=== PATIENT | female | born 1950 | race Caucasian/White ===

== ENCOUNTER 2017-08-21 12:05 | Emergency (ER) | payer OTHER ==
[~2017-08-21] VITALS: Ht 162.6 cm; Wt 76.8 kg
[2017-08-21 13:25] VITALS: BP 136/88
== END 2017-08-21 13:25 | disposition home or self-care (01) ==
LOC: ED 12:05
DX: R42 Dizziness and giddiness (principal); I10 Essential (primary) hypertension; K29.70 Gastritis, unspecified, without bleeding
CPT/HCPCS: J8597; Q0162

== ENCOUNTER 2018-11-18 15:47 | Inpatient (IN) | payer OTHER ==
[~2018-11-18] VITALS: Ht 160 cm; Wt 80.7 kg
--- NOTE | 2018-11-18 16:36 | NUR ---
PT PRESENTS TO ED WITH C/O OF RIGHT SIDED LOWER ABDOMINAL PAIN STARTING ACUTELY TODAY. PT STS PAIN IS SHARP AND AT TIMES RADIATES TO LLQ AND BACKSIDE. PER PT DAUGHTER PT HAD UTI AND WAS GIVEN MEDICATION FOR IT, BUT HAS NOT GOTTEN BETTER AFTER FINISHING MEDICATION. PT STS SHE FEELS NAUSEOUS BUT DENIES VOMTING. PT STS THE MED SHE TOOK FOR UTI MADE HER CONSTIPATED BUT HAD A BM TODAY. PT AAOX4, RESP E/U, ON FULL CM, NO ACUTE DISTRESS NOTED AT THIS TIME. DAUGHTER AT BEDSIDE. CALL LIGHT WITH IN REACH.
[2018-11-18 17:21] LABS: BASOPHIL % 0.5 % (0-2); PLATELET COUNT 242 x10^3mcL (130-400); RED CELL DISTRIBUTION WIDTH 12.8 % (11.5-14.5)
--- NOTE | 2018-11-18 17:24 | NUR ---
PT FAMILY NOTIFIED CT WAS DOWN AND IT MAY TAKE UP TO AN HOUR TO BE ON. PT FAMILY VERBALIZED THEY WILL WAIT FOR CT.
[2018-11-18 17:34] LABS: UA SPECIFIC GRAVITY <=1.005 (1.005-1.035); microscopic required? YES; urine erythrocyte 1+ (NEGATIVE)
[2018-11-18 17:37] LABS: CALCIUM 9.6 mg/dL (8.5-10.1); CARBON DIOXIDE 23.2 mmol/L (21-32); CHLORIDE SERUM 105 mmol/L (98-107); CREATININE SERUM 0.9 mg/dL (0.6-1.0); GFR1 > 60 mL/min; GLUCOSE SERUM 102 mg/dL (74-106); POTASSIUM SERUM 4.1 mmol/L (3.5-5.1); SODIUM SERUM 140 mmol/L (136-145)
[2018-11-18 17:43] LABS: ALBUMIN 4.1 g/dL (3.4-5.0); ALKALINE PHOSPHATASE 95 U/L (46-116); ALT/SGPT 25 U/L (14-59); AST/SGOT 10 U/L (15-37); BILIRUBIN TOTAL 0.29 mg/dL (0.20-1.00); LIPASE 134 IU/L (73-393); TOTAL PROTEIN, SERUM 7.6 g/dL (6.4-8.2)
--- NOTE | 2018-11-18 18:39 | NUR ---
PT OFF FLOOR TAKEN FOR CT SCAN
--- NOTE | 2018-11-18 18:55 | NUR ---
PT SITTING UP ON GURNEY IN POSITION OF COMFORT, AAOX4, RESP E/U, NO ACUTE DISTRESS NOTED AT THIS TIME.
--- NOTE | 2018-11-18 19:34 | NUR ---
PT AAOX4, SITTING UP IN BED, NO S/S OF DISTRESS NOTED. FAMLIY IS AT BEDSIDE. PT REPORTS PAIN HAS DECREASED TO A 2/10 AND IS TOLERABLE.
--- NOTE | 2018-11-18 20:24 | NUR ---
DR HERNÁNDEZ AT BEDSIDE DISCUSSING PLAN OF CARE WITH PT AND PT FAMILY.
[2018-11-18] MEDS ORDERED: SIMVASTATIN10 M1 PO (20:31)
[2018-11-18] MEDS ORDERED: BENAZEPRIL HYDR40 M1 PO (20:31)
--- NOTE | 2018-11-18 21:13 | NUR ---
REPORT GIVEN TO RAMAKRISHNA RUVALCABA TO ASSUME CARE OF PT.
--- NOTE | 2018-11-18 21:30 | NUR ---
PT SEEN SITTING ON THE EDGE OF THE BED, CAME IN DUE TO ABDOMINAL PAIN X1 DAY. AAOX4. DENIES HEADACHE/DIZZINESS. ABLE TO FOLLOW COMMANDS. NO SOB NOTED, LUNG SOUNDS CTA. DENIES CHEST PAIN/PRESSURE. DENIES ABDOMINAL PAIN/NAUSEA/VOMITING. ABDOMEN IS SOFT. BOWEL SOUNDS ACTIVE. LAST BM TODAY AND WAS FORMED. VOIDS. IV SITE ON THE RAC IS PATENT AND INTACT. DAUGHTER AT BEDSIDE. SIDE RAILS UPX2. CALL LIGHT ON REACH. ENDORSED TO PRIMARY NURSE JORDON FOR CONTINUITY OF CARE
[2018-11-18 21:36] VITALS: BP 141/73
--- NOTE | 2018-11-18 21:40 | NUR ---
DR. ROWE IS PAGED TO MADE AWARE THAT PT DOES NOT HAVE ADMIT ORDERS AT THIS TIME
[2018-11-18 21:41] VITALS: Ht 160 cm; Wt 80.7 kg
--- NOTE | 2018-11-18 22:02 | NUR ---
RECIEVED PT FROM PENELOPE RN IN NO ACUTE DISTRESS. FAMILY MEMBER AT BEDSIDE. PLACED ON TELE #9. ORIENTED TO ROOM. BED IN LOWEST POSITION, 2 SIDE RAILS UP, CALL LIGHT IN REACH. INSTRUCTED TO CALL FOR ASSISTANCE.
[2018-11-18 22:10] LABS: CHOLESTEROL/HDL RATIO 3.9; MAGNESIUM 2.5 mg/dL (1.8-2.4); PHOSPHOROUS 3.7 mg/dL (2.5-4.9)
--- NOTE | 2018-11-19 02:34 | NUR ---
RESTING IN BED WITH EYES CLOSED. BREATHING E/U ON RA. NO ACUTE DISTRESS NOTED. WILL CONTINUE TO MONITOR.
[2018-11-19 05:24] VITALS: BP 106/56
--- NOTE | 2018-11-19 06:04 | NUR ---
NO C/O ABD PAIN OVERNIGHT. NO ACUTE DISTRESS NOTED. NO ACUTE CHANGES. WILL ENDORSE TO ONCOMING RN.
--- NOTE | 2018-11-19 07:50 | NUR ---
RECEIVED PATIENT FROM RAMAKRISHNA RUVALCABA, PATIENT SEATED IN BED. NO COMPLAINTS OF ABDOMINAL PAIN AT THIS TIME. NO ABDOMINAL DISTENTION, NO PAIN ON PALPATION. WILL CONTINUE TO MONITOR. CALL LIGHT IN REACH.
[2018-11-19 08:05] LABS: BASOPHIL % 0.7 % (0-2); PLATELET COUNT 217 x10^3mcL (130-400); RED CELL DISTRIBUTION WIDTH 12.6 % (11.5-14.5)
[2018-11-19 09:04] VITALS: BP 113/65
[2018-11-19 10:35] VITALS: BP 136/74
[2018-11-19 10:46] VITALS: BP 136/74
[2018-11-19] MEDS ORDERED: COLACE100 MG PO (11:12)
--- NOTE | 2018-11-19 11:28 | NUR ---
PATIENT SEATED AT BEDSIDE, NO COMPLAINTS OF PAIN. FAMILY AT BEDSIDE. DISCHARGE PACKET & PRESCRIPTION EXPLAINED TO PATIENT & FAMILY. ALL QUESTIONS ADDRESSED. DISCHARGE PACKET GIVEN TO FAMILY. IV CATHETER REMOVED & INTACT. PATIENT W BELONGINGS ESCORTED DOWNSTAIRS MARIPOSA MOREL
== END 2018-11-19 11:39 | disposition home or self-care (01) | DRG 391 ==
LOC: ED 15:47 → MU 20:53 → DU 21:50 → MU 22:54
PROVIDERS: Emergency Medicine; ADMIT General Practice
DX: R10.31 Right lower quadrant pain (principal); N17.0 Acute kidney failure with tubular necrosis; R80.9 Proteinuria, unspecified; I10 Essential (primary) hypertension; E78.5 Hyperlipidemia, unspecified
CPT/HCPCS: 83880; J1885; J2405; Q0092

== ENCOUNTER 2018-11-23 18:08 | Inpatient (IN) | payer OTHER ==
[~2018-11-23] VITALS: Ht 160 cm; Wt 83.5 kg
[~2018-11-23 18:08] MED LIST: BENAZEPRIL HYDR40 M1 PO; COLACE100 MG PO; SIMVASTATIN10 M1 PO
--- NOTE | 2018-11-23 18:36 | NUR ---
ED PHYSICIAN AT BEDSIDE FOR PATIENT EVALUATION. MEDICAL SCREENING EXAMINATION COMPLETED BY ED PHYSICIAN DR. RODRIGUES.
--- NOTE | 2018-11-23 19:09 | NUR ---
REPORT HAND-OFF TO RAMAKRISHNA ACEVES TO ASSUME CARE.
[2018-11-23 19:23] LABS: BASOPHIL % 0.6 % (0-2); PLATELET COUNT 218 x10^3mcL (130-400); RED CELL DISTRIBUTION WIDTH 13.8 % (11.5-14.5)
[2018-11-23 19:30] LABS: CALCIUM 8.9 mg/dL (8.5-10.1); CARBON DIOXIDE 26.1 mmol/L (21-32); POTASSIUM SERUM 3.9 mmol/L (3.5-5.1)
[2018-11-23 19:35] LABS: ALBUMIN 3.4 g/dL (3.4-5.0); BILIRUBIN TOTAL 0.33 mg/dL (0.20-1.00); TOTAL PROTEIN, SERUM 7.3 g/dL (6.4-8.2)
--- NOTE | 2018-11-23 19:45 | NUR ---
REPORT CALLED TO EASTON DURBIN TO ASSUME PT CARE.
--- NOTE | 2018-11-23 19:52 | NUR ---
PT TRANSFERRED TO RM 222B BY WHEELCHAIR BY [facility] EMT. PT ACCEPTED BY EASTON DURBIN TO ASSUME PT CARE. PT AOX4, RESP EVEN AND UNLABORED, NO ACUTE DISTRESS NOTED.
--- NOTE | 2018-11-23 20:00 | NUR ---
PT SEEN LYING IN BED, AAOX4. PER PT'S DAUGHTER, THEY GOT A CALL ABOUT PT'S URINE CULTURE RESULT. AAOX4. DENIES HEADACHE/DIZZINESS. NO SOB NOTED. DENIES CHEST PAIN/PRESSURE. DENEIS ABDOMINAL DISCOMFORT. BOWEL SOUNDS ACTIVE. PT STATED THAT SHE HAS MILD BURNING SENSATION ON URINATION. IV SITE ON THE LEFT HAND GAUGE 22 IS PATENT AND INTACT. SIDE RAILS UPX2. CALL LIGHT ON REACH. ENDORSED TO PRIMARY NURSE EASTON FOR CONTINUITY OF CARE
[2018-11-23 20:05] VITALS: BP 125/62
[2018-11-23 20:10] VITALS: Ht 160 cm; Wt 83.5 kg
--- NOTE | 2018-11-24 00:14 | NUR ---
PT RESTING, BREATHING EVEN AND UNLABORED WITH NO SOB NOTED. IV PATENT, INFUSING WELL. SAFETY PRECAUTIONS IN PLACE. WILL MONITOR.
--- NOTE | 2018-11-24 01:39 | NUR ---
PT REPORTED HAVING A HEADACHE, MEDICATED PER EMAR. WILL MONITOR.
[2018-11-24 02:26] LABS: microscopic required? YES; urine erythrocyte 1+ (NEGATIVE)
--- NOTE | 2018-11-24 03:32 | NUR ---
ROUNDS MADE. PT RESTING, BREATHING EVEN AND UNLABORED WITH NO SIGNS OF DISTRESS NOTED. IV PATENT, INFUSING WELL. SAFETY PRECAUTIONS IN PLACE. WILL MONITOR.
--- NOTE | 2018-11-24 05:27 | NUR ---
PT SLEPT MOST OF THE NIGHT WITH NO SIGNS OF DISTRESS. BREATHING EVEN AND UNLABORED WITH NO SOB NOTED. IV PATENT, INFUSING WELL. NO SIGNS OF INFILTRATION NOTED. SAFETY PRECAUTIONS IN PLACE. WILL CONTINUE TO MONITOR AND ENDORSE CARE TO DAY SHIFT RN.
[2018-11-24 06:48] VITALS: BP 106/64
--- NOTE | 2018-11-24 07:35 | NUR ---
PT BREATHING EVEN AND UNLABORED WITH NO SIGNS OF DISTRESS. ENDORSED CARE TO DAY SHIFT RN, ALL QUESTIONS ADDRESSED.
--- NOTE | 2018-11-24 07:42 | NUR ---
RECIEVED PT FROM NIGHT NURSE. PT IS LAYING DOWN IN BED WITH HOB UP. PT LOOKS TO BE IN NO ACUTE DISTRESS AND DENIES ANY PAIN AT THIS TIME. RESPIRATIONS EVEN AND UNLABORED ON ROOM AIR. IV SITE PATENT WITH NO SIGNS OF ERYTHEMA OR SWELLING WITH IV FLUIDS INFUSING. BED IN LOWEST POSITION. CALL LIGHT WITHIN REACH. WILL CONTINUE TO MONITOR.
[2018-11-24 07:43] LABS: BASOPHIL % 0.7 % (0-2); PLATELET COUNT 215 x10^3mcL (130-400); RED CELL DISTRIBUTION WIDTH 13.8 % (11.5-14.5)
[2018-11-24 08:04] LABS: CALCIUM 8.8 mg/dL (8.5-10.1); CARBON DIOXIDE 23.8 mmol/L (21-32); CHLORIDE SERUM 108 mmol/L (98-107); CREATININE SERUM 0.8 mg/dL (0.6-1.0); GFR1 > 60 mL/min; GLUCOSE SERUM 97 mg/dL (74-106); MAGNESIUM 2.3 mg/dL (1.8-2.4); PHOSPHOROUS 3.7 mg/dL (2.5-4.9); POTASSIUM SERUM 4.2 mmol/L (3.5-5.1); SODIUM SERUM 143 mmol/L (136-145)
[2018-11-24 09:41] VITALS: BP 119/63
--- NOTE | 2018-11-24 11:00 | NUR ---
RECEIVED ORDER FOR PICC LINE PLACEMENT. CALLED TO PICC RN PLUS TO ARRANGE PICC LINE PLACEMENT, SERA FERNANDO(RN PICC)PATTERNMAKER METAL WILL BE NOTIFIED OF THE ORDER AND WILL CALL BACK OF Lazarus SIGALA RN ASSIGNED TO THIS PT MADE AWARE OF ABOVE.
--- NOTE | 2018-11-24 15:00 | NUR ---
PICC LINE NURSE AT BEDSIDE.
[2018-11-24 17:05] VITALS: BP 118/66
--- NOTE | 2018-11-24 18:48 | NUR ---
PT IS LAYING DOWN IN BED. RESPRIATIONS EVEN AND UNLABORED ON ROOM AIR. PT LOOKS TO BE IN NO ACUTE DISTRESS AT THIS TIME AND DENIES ANY PAIN. IV SITE PATENT WITH NO SIGNS OF ERYTHEMA OR SWELLING WITH IV FLUIDS INFUSING. BED IN LOWEST POSITION, CALL LIGHT WITHIN REACH. WILL ENDORSE TO ONCOMING SHIFT.
--- NOTE | 2018-11-24 19:43 | NUR ---
RECEIVED PATIENT FROM AM RN. PATIENT QUEITLY RESTING IN BED AT THIS TIME. FAMILY BY BEDSIDE. IVF INFUSING TO LEFT HAND AT 100ML/HR NS, NO PAIN OR INFILTRATION NOTED. REMAINE ON CONTACT PRECAUTIONS FOR ESBL OF THE URINE. CALL LIGHT WITHIN REACH.
[2018-11-24 20:38] VITALS: BP 122/66
--- NOTE | 2018-11-24 22:34 | NUR ---
PATIENT QUIETLY SLEEPING AT THIS TIME. BREATHING IS EVEN AND UNLABORED. NO S/SX OF DISTRESS NOTED. CALL LIGHT WITHIN REACH. IVF INFUSING TO LEFT HAND AT 100ML/HR NS. ALL NEEDS MET AT THIS TIME.
--- NOTE | 2018-11-25 05:25 | NUR ---
PATIENT QUIETLY RESTING IN BED. IVF INFUSING TO LEFT HAND AT 100ML/HR NS. NO INFILTRATION NOTED. REMAINED ON CONTACT PRECAUTIONS FOR ESBL OF THE URINE. PATIENT DENIES ANY SOB OR PAIN. CALL LIGHT WITHIN REACH AND CONTINUED ANTIBIOTICS MERREM. RIGHT UPPER ARM PICC LINE IN PLACE.
[2018-11-25 06:04] VITALS: BP 139/75
[2018-11-25 06:42] LABS: BASOPHIL % 0.7 % (0-2); PLATELET COUNT 222 x10^3mcL (130-400); RED CELL DISTRIBUTION WIDTH 13.6 % (11.5-14.5)
[2018-11-25 07:02] LABS: CALCIUM 9.2 mg/dL (8.5-10.1); CARBON DIOXIDE 23.5 mmol/L (21-32); CHLORIDE SERUM 108 mmol/L (98-107); CREATININE SERUM 0.8 mg/dL (0.6-1.0); GFR1 > 60 mL/min; GLUCOSE SERUM 95 mg/dL (74-106); MAGNESIUM 2.1 mg/dL (1.8-2.4); PHOSPHOROUS 3.2 mg/dL (2.5-4.9); POTASSIUM SERUM 4.2 mmol/L (3.5-5.1); SODIUM SERUM 142 mmol/L (136-145)
--- NOTE | 2018-11-25 07:18 | NUR ---
ENDORSED CARE TO AM RAMAKRISHNA VARGAS FOR CONTINUITY OF CARE. NO S/SX OF DISTRESS NOTED.
--- NOTE | 2018-11-25 08:00 | NUR ---
PATIENT RECEIVED ALERT AND ORIENTED TIMES FOUR. PATIENT IN ISOLATION FOR THE URINE AND HAS BEEN ON MERRIN IVPB AND TOELRATE SO FAR WELL. PATIENT AHS NOTED WITH VITALS AT 97.9, 68, 18, 139/75, 96%. PATIENT AND NOTED LABS OF GLUCOSE AT 157, AND AST AT 11, AND CHRIS RICHARD NOTE DBLOOD , WBCS AND MANY BATERIA IN THE UINRE. CHRIS RICHARD BEEN ABLE TO MAKE NEEDS KNOWN BUT IS MOST SPAINISH SPEAING AT THIS TIME.
[2018-11-25 09:38] VITALS: BP 141/75
--- NOTE | 2018-11-25 10:11 | NUR ---
PATIENT DENIES PAIN AT THIS TIME. IV INTACT AND PATIENT HAS TOLERATED OOB WELL. PATIENT HAS BEEN IN ISOLATION FOR THE ESBL AND APRIL RICHARD WTIH BLOOD WELL MANY BACTERIA AND WBCS WELL IN THE URINE. CHRIS IRCHARD HISTORY OF HTN, APPENDECTOMY, VGINAL RECONSTRUCTION AND DYSLIPIDEMIA. SHE HAS SEEN IN THE ER AND REQUESTED TO COME BACK WHEN THE UTI INFEXTION WAS DIAGNOSED. WILL ONTNUE ON THE PRESENT PLAN OF CARE.
--- NOTE | 2018-11-25 12:45 | NUR ---
PATIENT IS AWAITING BARREL LATHE OPERATOR TO ARRANGE THE ANTIBIOTIC THERAPY SHE WILL NEED. FAMILY AWARE.
[2018-11-25] MEDS ORDERED: MEROPENEM1 GM IV (14:20)
--- NOTE | 2018-11-25 17:00 | NUR ---
PATIENT FOR DISCHARGE POST INFUSION OF THE NEXT ANTIBIOTIC MERRIN. THE DCOTOR TO COME AND TALK WITH THE PATIENT ABOUT THE EVENTS AND THE PLAN OF DISCHARGE. IF AGREEABE THE PATIENT WILL RECEIVE HER LAST DOSING AT TEN PM PRIOR TO DISCHARGE. AWAITING THE DECISION.
--- NOTE | 2018-11-25 17:28 | NUR ---
SPOKE KINGSLEY THE DISTRIBUTOR FOR THE MEDICATIONGS TO BE GIVEN AT [facility]. PATIENT IS TO HAVE LOST DOSING HERE AT [facility] AND THEN DISCHARGE [facility] TO CONTINUE IN THE MORNING WITH THE [facility]. =
[2018-11-25 18:03] VITALS: BP 144/83
--- NOTE | 2018-11-25 18:43 | NUR ---
PERIPHERAL LINE LEAKING AND CALLED THE IMAGING SCIENCE PROFESSOR TO SEE IF CAN USE THE PICC LINE FOR NEXT DOSING. AWAITING CALL BACK AT THIS TIME.
--- NOTE | 2018-11-25 19:30 | NUR ---
RECEIVED PT IN BED RESTING QUIETLY. SHE IS ALERT,ORIENTED X4. PT W/ ORDERS FOR D/C HOME TONIGHT. SHE HAS NO C/O PAIN AT THIS TIME. W/ PICC LINE TO LT UPPER ARM INTACT. IV TO LT HAND W/ MILD SWELLING.WILL REMOVE IV. CALL LIGHT W/IN REACH.
[2018-11-25 19:34] VITALS: BP 144/83
[2018-11-25 20:31] VITALS: BP 136/72
--- NOTE | 2018-11-25 21:55 | NUR ---
DISCHARGE INSTRUCTIONS EXPLAINED TO PT AND HER DAUGHTER. PRESCRIPTION GIVEN. ALL PAPERS SIGNED BY PT.
--- NOTE | 2018-11-25 22:16 | NUR ---
PT TAKEN DOWN VIA WHEELCHAIR BY [facility] COIL WINDER. PT ACCOMPANIED BY DAUGHTER.
== END 2018-11-25 22:15 | disposition home or self-care (01) | DRG 689 ==
LOC: ED 18:08 → MU 18:57
PROVIDERS: Emergency Medicine; Internal Medicine; ADMIT General Practice
DX: N39.0 Urinary tract infection, site not specified (principal); N17.0 Acute kidney failure with tubular necrosis; B96.20 Unspecified Escherichia coli [E. coli] as the cause of diseases classified elsewhere; I10 Essential (primary) hypertension; R80.9 Proteinuria, unspecified; E78.5 Hyperlipidemia, unspecified; Z68.32 Body mass index [BMI] 32.0-32.9, adult; Z87.891 Personal history of nicotine dependence; Z16.12 Extended spectrum beta lactamase (ESBL) resistance
CPT/HCPCS: C1751; J2185; J7030; J7050; Q0092

== ENCOUNTER 2020-04-07 13:10 | Emergency (ER) | payer OTHER ==
[~2020-04-07] VITALS: Ht 160 cm; Wt 80.7 kg
[~2020-04-07 13:10] MED LIST changes: +MEROPENEM1 GM IV
[2020-04-07 13:54] LABS: BASOPHIL % 0.3 % (0-2); PLATELET COUNT 228 x10^3mcL (130-400); RED CELL DISTRIBUTION WIDTH 13.3 % (11.5-14.5)
[2020-04-07 14:48] LABS: CARBON DIOXIDE 26.6 mmol/L (21-32); CREATININE SERUM 1.1 mg/dL (0.6-1.0); POTASSIUM SERUM 4.2 mmol/L (3.5-5.1)
[2020-04-07 14:49] LABS: BILIRUBIN TOTAL 0.4 mg/dL (0.20-1.00); TOTAL PROTEIN, SERUM 7.9 g/dL (6.4-8.2)
[2020-04-07 15:38] VITALS: BP 121/75
== END 2020-04-07 15:38 | disposition home or self-care (01) ==
LOC: ED 13:10
PROVIDERS: Emergency Medicine
DX: F41.9 Anxiety disorder, unspecified (principal); R00.2 Palpitations; I10 Essential (primary) hypertension; Z88.2 Allergy status to sulfonamides
CPT/HCPCS: 82962; Q0092

== ENCOUNTER 2020-09-01 00:55 | Emergency (ER) | payer OTHER ==
[~2020-09-01] VITALS: Ht 165.1 cm; Wt 83.2 kg
[2020-09-01 01:06] VITALS: Ht 165.1 cm; Wt 83.2 kg
[2020-09-01] MEDS ORDERED: AZOR1 TAB PO (01:23)
[2020-09-01 02:47] LABS: BASOPHIL % 0.9 % (0.2-1.3); PLATELET COUNT 199 x10^3mcL (179-408); RED CELL DISTRIBUTION WIDTH 13.9 % (12.3-17.7)
[2020-09-01 02:52] LABS: CALCIUM 8.8 mg/dL (8.5-10.1); CARBON DIOXIDE 27.3 mmol/L (21-32); POTASSIUM SERUM 4.5 mmol/L (3.5-5.1)
[2020-09-01 04:19] VITALS: BP 130/64
== END 2020-09-01 04:19 | disposition home or self-care (01) ==
LOC: ED 00:55
PROVIDERS: Emergency Medicine
DX: F41.9 Anxiety disorder, unspecified (principal); I10 Essential (primary) hypertension; Z88.2 Allergy status to sulfonamides